=== PATIENT | male | born 1990 | race Caucasian/White ===

== ENCOUNTER 2024-09-27 07:16 | Emergency (ER) | payer OTHER ==
[2024-09-27 10:05] VITALS: BP 144/88; TEMP 97; O2SAT 99
[2024-09-27] MEDS ORDERED: TRAZ-252 PO (11:12)
== END 2024-09-27 11:41 | disposition home or self-care (01) ==
LOC: M ED 07:16
DX: F41.0 Panic disorder [episodic paroxysmal anxiety] (principal); F32.A Depression, unspecified; F43.10 Post-traumatic stress disorder, unspecified; F10.10 Alcohol abuse, uncomplicated; Z79.899 Other long term (current) drug therapy